=== PATIENT | male | born 1995 | race African-American/Black ===

== ENCOUNTER 2020-06-24 13:30 | Inpatient (IN) | payer MEDICAID ==
[~2020-06-24] VITALS: Ht 180.3 cm; Wt 75.7 kg
[2020-06-24] MEDS ORDERED: DiphenhydrAMINE HCL 50 MG/ML VIAL IM ONE (18:15)
[2020-06-24] MEDS ORDERED: HALOPERIDOL LACTATE 5 MG/ML VIAL IM ONE (18:15)
[2020-06-24] MEDS ORDERED: LORazepam 2 MG/ML VIAL IM ONE (18:15)
[2020-06-24 18:29] LABS: AMPHET/METH SCREEN,URINE NEGATIVE (NEGATIVE); BARBITURATE SCREEN, URINE NEGATIVE (NEGATIVE); BENZODIAZEPINES SCREEN,URINE NEGATIVE (NEGATIVE); CANNABINOID SCREEN,URINE POSITIVE (NEGATIVE); COCAINE SCREEN,URINE NEGATIVE (NEGATIVE); METHADONE SCREEN, URINE NEGATIVE (NEGATIVE); OPIATE SCREEN,URINE NEGATIVE (NEGATIVE)
[2020-06-24 18:31] LABS: PHENCYCLIDINE SCREEN,URINE NEGATIVE (NEGATIVE)
[2020-06-24 20:08] LABS: BASOPHILS % (AUTO) 0.8 % (0.0-2.0); EOSINOPHILS % (AUTO) 0.5 % (1.0-6.0); HEMATOCRIT 42.1 % (41-53); LYMPHOCYTES % (AUTO) 24.5 % (22.0-44.0); MEAN CORPUSCULAR HEMOGLOBIN 29.8 pg (26.0-34.0); MEAN CORPUSCULAR HGB CONC 33.3 G/dL (31.0-37.0); MEAN CORPUSCULAR VOLUME 90 fL (80-100); MONOCYTES # (AUTO) 0.5 K/uL (0.1-1.0); MONOCYTES % (AUTO) 13.1 % (2.0-9.0); NEUTROPHILS # (AUTO) 2.5 K/uL (1.8-7.7); NEUTROPHILS % (AUTO) 61.1 % (40.0-70.0); PLATELET COUNT (AUTO) 219 K/uL (150-450); RED CELL DISTRIBUTION WIDTH 12.9 % (11.5-14.5)
[2020-06-24 20:22] LABS: ANION GAP 7 mmol/L (8-16); CALCIUM, TOTAL 9.2 mg/dL (8.8-10.5); CARBON DIOXIDE 27 mmol/L (22-29); CHLORIDE 103 mmol/L (98-107); CREATININE 1.22 mg/dL (0.60-1.30); GLOMERULAR FILTR. RATE CALC > 60 mL/min (>60); GLUCOSE,RANDOM 79 mg/dL (70-110); POTASSIUM 3.5 mmol/L (3.5-5.1); SODIUM SERUM 137 mmol/L (136-145); UREA NITROGEN, BLOOD 12 mg/dL (7-18)
[2020-06-24 20:28] LABS: ALANINE AMINOTRANSFERASE 39 U/L (12-78); ALBUMIN 3.8 g/dL (3.4-5.0); ALKALINE PHOSPHATASE 78 U/L (46-116); ASPARTATE AMINOTRANSFERASE 93 U/L (15-37); BILIRUBIN,TOTAL 0.6 mg/dL (0.1-1.0); TOTAL PROTEIN, SERUM 7.1 g/dL (6.4-8.2)
[2020-06-25 01:00] VITALS: BP 111/64
[2020-06-25 08:05] VITALS: BP 121/72
[2020-06-25 08:21] LABS: CHOL/HDL RATIO 3.3 (4.2-7.3)
[2020-06-25] MEDS ORDERED: ACETAMINOPHEN 325 MG TABLET PO PRN (08:30)
[2020-06-25] MEDS ORDERED: PETROLATUM,WHITE 28 GM JELLY TP PRN (08:30)
[2020-06-25] MEDS ORDERED: MAG HYDROX/AL HYDROX/SIMETH ES 30 ML SUSPENSION UDCUP PO PRN (08:30)
[2020-06-25] MEDS ORDERED: MAGNESIUM HYDROXIDE SUSPENSION 30 ML UDCUP PO PRN (08:30)
[2020-06-25] MEDS ORDERED: IBUPROFEN 400 MG TABLET PO PRN (08:30)
[2020-06-25] MEDS ORDERED: CloNIDine HCL 0.1 MG TABLET PO PRN (08:30)
[2020-06-25] MEDS ORDERED: GuaiFENesin/D-METHORPHAN [SUGAR-FREE] 200-20MG/10 ML SYRUP UDCUP PO PRN (08:30)
[2020-06-25] MEDS ORDERED: ALBUTEROL SULFATE HFA 90 MCG/PUFF 8 GM INHALER IH PRN (08:30)
[2020-06-25] MEDS ORDERED: DOCUSATE SODIUM 100 MG CAPSULE PO PRN (08:30)
[2020-06-25] MEDS ORDERED: NICOTINE 14 MG/24 HOUR PATCH TD PRN (08:30)
[2020-06-25] MEDS ORDERED: ONDANSETRON HCL 4 MG TABLET PO PRN (08:30)
[2020-06-25] MEDS ORDERED: LOPERAMIDE HCL 2 MG CAPSULE PO PRN (08:30)
[2020-06-25] MEDS: OLANZapine 5 MG TABLET PO SCH ×2 (13:02→17:13)
[2020-06-25 16:10] VITALS: BP 139/70
[2020-06-25] MEDS: LORazepam 2 MG TABLET PO PRN (17:16)
[2020-06-25] MEDS: ZOLPIDEM TARTRATE 10 MG TABLET PO PRN (20:39)
[2020-06-26 03:49] VITALS: BP 131/76
[2020-06-26] MEDS: OLANZapine 5 MG TABLET PO SCH ×2 (08:48→16:36)
[2020-06-26 09:00] VITALS: BP 132/93
[2020-06-26] MEDS: LORazepam 2 MG TABLET PO PRN ×2 (09:01→16:36)
[2020-06-26 18:04] VITALS: BP 138/74
[2020-06-26] MEDS: ZOLPIDEM TARTRATE 10 MG TABLET PO PRN (21:09)
[2020-06-27 00:45] VITALS: BP 128/75
[2020-06-27 08:35] VITALS: BP 121/84
[2020-06-27] MEDS: OLANZapine 5 MG TABLET PO SCH ×2 (08:52→16:28)
[2020-06-27 16:08] VITALS: BP 125/67
[2020-06-27] MEDS: LORazepam 2 MG TABLET PO PRN (16:28)
[2020-06-27] MEDS: ZOLPIDEM TARTRATE 10 MG TABLET PO PRN (20:15)
[2020-06-28 05:12] VITALS: BP 130/90
[2020-06-28 08:56] VITALS: BP 123/78
[2020-06-28] MEDS: OLANZapine 5 MG TABLET PO SCH ×2 (09:34→16:31)
[2020-06-28 16:05] VITALS: BP 116/74
[2020-06-28] MEDS: LORazepam 2 MG TABLET PO PRN (16:31)
[2020-06-28] MEDS: HALOPERIDOL 5 MG TABLET PO PRN (16:31)
[2020-06-28] MEDS: ZOLPIDEM TARTRATE 10 MG TABLET PO PRN (20:05)
[2020-06-29 00:36] VITALS: BP 129/70
[2020-06-29] MEDS: LORazepam 2 MG TABLET PO PRN ×2 (00:38→16:48)
[2020-06-29] MEDS: HALOPERIDOL 5 MG TABLET PO PRN (00:38)
[2020-06-29 08:01] VITALS: BP 120/72
[2020-06-29] MEDS: OLANZapine 5 MG TABLET PO SCH ×2 (08:02→16:48)
[2020-06-29 16:14] VITALS: BP 140/83
[2020-06-30 05:49] VITALS: BP 126/78
[2020-06-30 08:06] VITALS: BP 129/87
[2020-06-30] MEDS: OLANZapine 5 MG TABLET PO SCH (08:28)
[2020-06-30] MEDS ORDERED: OLAN5TAB2 PO (12:32)
== END 2020-06-30 16:46 | disposition left against medical advice (07) | DRG 750 ==
LOC: EMS 13:32 → B3A 19:12
PROVIDERS: ADMIT Psychiatry & Neurology Child & Adolescent Psychiatry; ATTEND Psychiatry & Neurology Child & Adolescent Psychiatry
DX: F20.0 Paranoid schizophrenia (principal); D72.819 Decreased white blood cell count, unspecified; G47.00 Insomnia, unspecified; F10.10 Alcohol abuse, uncomplicated; F19.10 Other psychoactive substance abuse, uncomplicated; Z78.1 Physical restraint status
CPT/HCPCS: G0480; J1200; J1630; J2060

== ENCOUNTER 2021-04-15 15:21 | Emergency (ER) | payer MEDICAID ==
[~2021-04-15] VITALS: Ht 175.3 cm; Wt 63.6 kg
[~2021-04-15 15:21] MED LIST: OLAN5TAB52 PO
[2021-04-15 16:01] VITALS: BP 111/64
[2021-04-15] MEDS ORDERED: ACETAMINOPHEN 325 MG TABLET PO ONE (16:15)
[2021-04-15] MEDS ORDERED: BACITRACIN 0.9 GM PACKET OINTMENT TP ONE (16:15)
== END 2021-04-15 16:51 | disposition home or self-care (01) ==
LOC: EMS 15:21
DX: S90.821A Blister (nonthermal), right foot, initial encounter (principal); S90.822A Blister (nonthermal), left foot, initial encounter; F20.9 Schizophrenia, unspecified; X58.XXXA Exposure to other specified factors, initial encounter; Y93.89 Activity, other specified; Y92.89 Other specified places as the place of occurrence of the external cause; Y99.8 Other external cause status
CPT/HCPCS: 99283

== ENCOUNTER 2023-08-26 13:59 | Emergency (ER) | payer MEDICAID ==
[~2023-08-26] VITALS: Ht 188 cm; Wt 180.0 kg
[2023-08-26 14:30] VITALS: TEMP 98.2
[2023-08-26] MEDS ORDERED: ACETAMINOPHEN 500 MG TABLET PO ONE (15:15)
[2023-08-26] MEDS ORDERED: OLANZapine 5 MG RAPDIS TABLET PO ONE (15:15)
[2023-08-26 16:51] VITALS: BP 119/65; PULSE 63; RESP 16
[2023-08-26] MEDS ORDERED: OLAN5TAB52 PO (16:53)
== END 2023-08-26 17:04 | disposition home or self-care (01) ==
LOC: EMS 14:20
DX: F20.0 Paranoid schizophrenia (principal); R51.9 Headache, unspecified
CPT/HCPCS: 99283; 99284

== ENCOUNTER 2023-08-29 09:09 | Emergency (ER) | payer MEDICAID ==
[~2023-08-29] VITALS: Ht 185.4 cm; Wt 76.8 kg
[2023-08-29 09:19] VITALS: BP 156/99; PULSE 60; RESP 18; TEMP 98.6
[2023-08-29] MEDS ORDERED: OLAN5TAB94 PO (09:21)
== END 2023-08-29 09:43 | disposition home or self-care (01) ==
LOC: EMS 09:14
DX: F20.0 Paranoid schizophrenia (principal)
CPT/HCPCS: 99283; Z7502

== ENCOUNTER 2024-02-12 06:37 | Emergency (ER) | payer MEDICAID ==
[~2024-02-12] VITALS: Ht 190.5 cm; Wt 75.5 kg
[~2024-02-12 06:37] MED LIST changes: +OLAN5TAB94 PO
[2024-02-12 07:07] VITALS: TEMP 98
[2024-02-12 08:30] VITALS: BP 128/62; PULSE 70; RESP 16
[2024-02-12] MEDS ORDERED: OLAN5TAB52 PO (08:37)
[2024-02-12] MEDS ORDERED: CLOB15CR10 TP (08:37)
[2024-02-12] MEDS ORDERED: DIPH-1243 PO (08:37)
== END 2024-02-12 09:01 | disposition home or self-care (01) ==
LOC: EMS 06:37
DX: F20.0 Paranoid schizophrenia (principal); L30.9 Dermatitis, unspecified
CPT/HCPCS: 99283

== ENCOUNTER 2024-11-02 20:53 | Emergency (ER) | payer MEDICAID ==
[~2024-11-02] VITALS: Ht 175.3 cm; Wt 69.0 kg
[~2024-11-02 20:53] MED LIST changes: +CLOB15CR10 TP; +DIPH-1243 PO
[2024-11-02 21:12] VITALS: TEMP 98.2
[2024-11-02 23:43] LABS: APPEARANCE,URINE CLEAR (CLEAR); BILIRUBIN,URINE NEGATIVE (NEGATIVE); COLOR,URINE YELLOW (YELLOW); GLUCOSE, URINE (UA) NEGATIVE (NEGATIVE); KETONES,URINE TRACE mg/dL (NEGATIVE); LEUKOCYTE ESTERASE ,URINE NEGATIVE (NEGATIVE); NITRATE,URINE NEGATIVE (NEGATIVE); OCCULT BLOOD,URINE NEGATIVE (NEGATIVE); PROTEIN,URINE TRACE mg/dL (NEGATIVE); SPECIFIC GRAVITIY, URINE 1.029 (1.003-1.030); UROBILINOGEN,URINE <=1.0 mg/dL (<=1.0)
[2024-11-02 23:52] LABS: ALCOHOL, URINE DRUG SCREEN NEGATIVE (NEGATIVE); AMPHET/METH SCREEN,URINE NEGATIVE (NEGATIVE); BARBITURATE SCREEN, URINE NEGATIVE (NEGATIVE); BENZODIAZEPINES SCREEN,URINE NEGATIVE (NEGATIVE); CANNABINOID SCREEN,URINE NEGATIVE (NEGATIVE); COCAINE SCREEN,URINE NEGATIVE (NEGATIVE); METHADONE SCREEN, URINE NEGATIVE (NEGATIVE); OPIATE SCREEN,URINE NEGATIVE (NEGATIVE); PHENCYCLIDINE SCREEN,URINE NEGATIVE (NEGATIVE)
[2024-11-03] LABS: BASOPHILS % (AUTO) 0.9 % (0.0-2.0); EOSINOPHILS % (AUTO) 1.2 % (1.0-6.0); HEMATOCRIT 42.3 % (41-53); HEMOGLOBIN 14.3 g/dL (13.5-17.5); LYMPHOCYTES # (AUTO) 1.3 K/uL (1.0-4.8); LYMPHOCYTES % (AUTO) 33.6 % (22.0-44.0); MEAN CORPUSCULAR HEMOGLOBIN 30.6 pg (26.0-34.0); MEAN CORPUSCULAR HGB CONC 33.7 G/dL (31.0-37.0); MEAN CORPUSCULAR VOLUME 91 fL (80-100); MONOCYTES # (AUTO) 0.5 K/uL (0.1-1.0); MONOCYTES % (AUTO) 13.3 % (2.0-9.0); PLATELET COUNT (AUTO) 265 K/uL (150-450); RED BLOOD CELL COUNT(AUTO) 4.65 MIL/uL (4.50-5.90); RED CELL DISTRIBUTION WIDTH 13.2 % (11.5-14.5)
[2024-11-03 00:11] LABS: ANION GAP 2 mmol/L (8-16); CARBON DIOXIDE 33 mmol/L (22-29); CHLORIDE 102 mmol/L (98-107); CREATININE 1.09 mg/dL (0.60-1.30); GLOMERULAR FILTR. RATE CALC > 60 mL/min (>60); GLUCOSE,RANDOM 78 mg/dL (70-110); POTASSIUM 3.8 mmol/L (3.5-5.1); SODIUM SERUM 137 mmol/L (136-145); UREA NITROGEN, BLOOD 15 mg/dL (7-18)
[2024-11-03 00:15] LABS: ALCOHOL, BLOOD (SERUM) < 3 mg/dL (0-10)
[2024-11-03] MEDS ORDERED: POLY17PO62 PO (03:48)
[2024-11-03 03:56] VITALS: BP 128/63; PULSE 62; RESP 18; O2SAT 98
== END 2024-11-03 04:02 | disposition home or self-care (01) ==
LOC: EMS 20:53
DX: K59.00 Constipation, unspecified (principal); R10.84 Generalized abdominal pain; F20.9 Schizophrenia, unspecified
CPT/HCPCS: 99284; 80048; 85025; 36415; 80307; 81003; 74018; G0480